=== PATIENT | male | born 1975 | race Caucasian/White ===

== ENCOUNTER → 2021-06-03 | Outpatient (CLI) | payer BC ==
[~2021-06-03] MED LIST: CASIRIVIMAB/IMDEVIMAB 600/600mg in IV NS TV=50 ML IV ONE
--- NOTE | 2021-06-03 10:05 | NUR ---
pt ambulated to ICU-2, for outpatient infusion of Regeneron. VS obtained, peripheral IV of 20G to left AC. Infusion will begin after pharmacy prepares the medication. Pt is sitting comfortably listening to music.
[2021-06-03 10:20] VITALS: BP 169/100
--- NOTE | 2021-06-03 11:35 | NUR ---
infusion complete. per protocol pt will be monitored for 1 hour for any allergic reactions.
--- NOTE | 2021-06-03 13:45 | NUR ---
Observation time is complete. Pt tolerated infusion well and denies any reactions or symptoms from the infusion. IV dc'd with tip intact, coban pressure dressing applied. Pt ambulated to pov upon dc.
== END | disposition home or self-care (01) ==
LOC: OPINF 09:51
PROVIDERS: ATTEND Family Medicine
DX: U07.1 COVID-19 (principal)
CPT/HCPCS: M0243; Q0243

== ENCOUNTER → 2021-07-01 | Outpatient (CLI) | payer BC ==
[2021-06-03 10:20] VITALS: BP 169/100
--- NOTE | 2021-07-01 12:00 | RAD ---
Examination: CT chest without contrast HISTORY: History of ellis virus COMPARISON: None available TECHNIQUE: Axial CT images of chest were performed without contrast. Coronal and sagittal reformats a re performed Exposure: One or more of the following individualized dose reduction techniques were utilized for thi s examination: 1. Automated exposure control 2. Adjustment of the mA and/or kV according to patient size 3. Use of iterative reconstruction technique FINDINGS: The visualized thyroid gland grossly appears unremarkable central airways are patent. Heart size adam sly appears unremarkable. No radiologically mediastinal lymphadenopathy. 5 mm nodule identified in th e right upper lobe of the lung abutting the pleura. A tiny 4 mm nodule identified in the left lower l obe of the lung abutting the pleura. Mild decreased attenuation noted in the liver likely hepatic maggie atosis. The spleen, adrenals grossly appears unremarkable. Mild degenerative changes thoracic spine. IMPRESSION: 1. No evidence of lung infiltrates. 2.5 mm nodule identified in the right upper lobe of the lung abutting the pleura. A tiny 4 mm nodule identified in the left lower lobe of the lung abutting the pleura. Follow-up per Fleischner Society g uidelines with follow-up CT in 6-12 months. 3. Mild hepatic steatosis. Electronically signed by: Iker Haile MD (07/01/2021 11:57 AM) [id number]
== END ==
LOC: CT 11:28
PROVIDERS: ATTEND Family Medicine
DX: R91.8 Other nonspecific abnormal finding of lung field (principal); B97.21 SARS-associated coronavirus as the cause of diseases classified elsewhere; K76.0 Fatty (change of) liver, not elsewhere classified
CPT/HCPCS: 71250

== ENCOUNTER → 2021-07-13 | Day surgery (SDC) | payer BC, OTHER ==
[2021-06-03 10:20] VITALS: BP 169/100
[~2021-07-13] MED LIST changes: +0.9 % SODIUM CHLORIDE 10 ML VIAL. ONE; +ALPR0.5T PO; +BUPIVACAINE MPF 0.25% 30 ML VIAL. ONE; -CASIRIVIMAB/IMDEVIMAB 600/600mg in IV NS TV=50 ML IV ONE; +DEXAMETHASONE SOD PHOS 10 MG/ML VIAL. ONE; +GABA-586 PO; +IBUP800T19 PO; +IOHEXOL 300 MG/ML 50 ML VIAL. ONE; +LIDOCAINE 1% PF 30 ML VIAL. ONE; +PROAIR RESPICL90 MCG IH
== END | disposition home or self-care (01) ==
LOC: SURG 09:20
PROVIDERS: ATTEND Anesthesiology
DX: M48.02 Spinal stenosis, cervical region (principal); G89.4 Chronic pain syndrome; M54.12 Radiculopathy, cervical region; I10 Essential (primary) hypertension; Z79.899 Other long term (current) drug therapy; Z71.82 Exercise counseling
CPT/HCPCS: 99214; J3490; J1100; Q9967; G0463

== ENCOUNTER → 2021-07-13 | Outpatient (CLI) | payer OTHER ==
[2021-06-03 10:20] VITALS: BP 169/100
[~2021-07-13] MED LIST changes: -0.9 % SODIUM CHLORIDE 10 ML VIAL. ONE; -BUPIVACAINE MPF 0.25% 30 ML VIAL. ONE; -DEXAMETHASONE SOD PHOS 10 MG/ML VIAL. ONE; -IOHEXOL 300 MG/ML 50 ML VIAL. ONE; -LIDOCAINE 1% PF 30 ML VIAL. ONE
--- NOTE | 2021-07-13 14:09 | RAD ---
EXAM: Left knee, 3 views. HISTORY: Pain. COMPARISON: None. FINDINGS: 3 views of the left knee are obtained. There is no fracture, dislocation or subluxation. Th ere is minimal enthesopathy along the superior patella. There is no joint effusion. IMPRESSION: No acute osseous finding. Electronically signed by: Sarah Beth Garland MD (07/13/2021 2:06 PM) [id number]
== END ==
LOC: RAD 13:31
PROVIDERS: ATTEND Orthopaedic Surgery
DX: M76.892 Other specified enthesopathies of left lower limb, excluding foot (principal)
CPT/HCPCS: 73562

== ENCOUNTER → 2021-07-27 | Day surgery (SDC) | payer OTHER ==
[~2021-07-27] MED LIST changes: +0.9 % SODIUM CHLORIDE 10 ML VIAL. ONE; +DEXAMETHASONE SOD PHOS 10 MG/ML VIAL. ONE; +IOHEXOL 300 MG/ML 50 ML VIAL. ONE; +LIDOCAINE 1% PF 30 ML VIAL. ONE
[2021-07-27 12:43] VITALS: BP 131/109
== END | disposition home or self-care (01) ==
LOC: SURG 11:20
PROVIDERS: ATTEND Anesthesiology
DX: M54.12 Radiculopathy, cervical region (principal); M54.2 Cervicalgia; G89.29 Other chronic pain; Z98.890 Other specified postprocedural states
CPT/HCPCS: 62321; J1100; Q9967